=== PATIENT | male | born 1985 | race Caucasian/White ===

== ENCOUNTER 2017-07-17 22:38 | Inpatient (IN) ==
--- NOTE | 2017-07-17 22:51 | Emergency Department Note ---
Disposition Clinical Impression: Suicidal ideation, Acute kidney injury Overdose Qualifiers: Encounter type: initial encounter Injury intent: intentional self-harm Qualified Code(s): T50.902A - Poisoning by unspecified drugs, medicaments and biological substances, intentional self-harm, initial encounter Disposition: Still a Patient Condition: Fair Referrals: NONE,PCP [Primary Care Provider] - Psych HPI - General Stated Complaint: overdose Time Seen by Provider: 07/17/17 22:46 Source: patient, EMS Mode of arrival: EMS Limitations: no limitations Nursing Notes Reviewed: Yes Vital Signs Reviewed: Yes - History of Present Illness HPI Narrative: 31-year-old male with a history of SI, depression, substance abuse presents for evaluation after an intentional overdose. Patient states that he took heroin. Patient states that he wanted to kill himself. Patient has have history of SI in the past. Patient states he has been under significant depression. Patient was found unresponsive and was given 4 mg of Narcan. Patient was completely reversed. She also notes a take heroin. Patient denies any delusions or hallucinations. Patient denies any other complaints. - Related Data Previous Rx's Medication Instructions Recorded Clindamycin [Cleocin] 300 mg PO Q6HR #56 capsule 09/05/15 OxyCODONE/APAP 7.5/325 [Percocet 1 each PO Q6HR PRN #30 tablet 09/05/15 7.5/325 MG] Clindamycin HCl 300 mg PO TID #30 capsule 07/25/16 Ondansetron HCl [Zofran] 4 mg PO Q6H #20 tablet 07/25/16 Allergies Allergy/AdvReac Type Severity Reaction Status Date / Time No Known Allergies Allergy Verified 09/03/15 08:15 All systems ED: reviewed and negative except as stated. Constitutional: Denies: fever Cardiovascular: Denies: chest pain Respiratory: Denies: cough, dyspnea Gastrointestinal: Denies: abdominal pain, nausea, vomiting Past Medical History - Past Medical History Source: patient Medical history: Reports: no medical history Surgical history: Reports: other Psychiatric history: Reports: anxiety, depression - Social History Smoking Status: Current every day smoker Smokeless Tobacco Status: No Alcohol use: Reports: occasionally Drug use: Reports: marijuana Physical Exam - General Limitations: no limitations General appearance: alert, in no apparent distress - Head Head exam: atraumatic, normocephalic, normal inspection - Eye Eye exam: Present: normal appearance, PERRL, EOMI. Absent: miosis - ENT ENT exam: normal exam - Neck Neck exam: Present: normal inspection - Chest Chest inspection: Present: normal inspection. Absent: symmetric chest wall rise - Respiratory Respiratory exam: Present: normal lung sounds bilaterally. Absent: respiratory distress - Cardiovascular Cardiovascular exam: Present: regular rate, normal rhythm - Abdominal Exam Abdominal exam: Present: soft, Non-Tender - Extremities Exam Extremities exam: Present: normal inspection - Back Exam Back exam: Present: normal inspection - Neurological Exam Neurological exam: Present: alert, CN II-XII intact - Skin Skin exam: Present: warm, dry, intact, normal color Course Course Narrative: Patient seen and examined. Patient does admit to being suicidal. Patient will get medically cleared and evaluated by psychiatry. Vital Signs Temperature 97.5 F L 07/17/17 23:05 Pulse Rate 86 07/17/17 23:05 Respiratory Rate 18 07/17/17 23:05 Blood Pressure 128/73 07/17/17 23:05 O2 Sat by Pulse Oximetry 98 07/17/17 23:05 Temperature 97.5 F L 07/17/17 23:05 Pulse Rate 86 07/17/17 23:05 Respiratory Rate 18 07/17/17 23:05 Blood Pressure 128/73 07/17/17 23:05 O2 Sat by Pulse Oximetry 98 07/17/17 23:05 Oxygen Delivery Oxygen Delivery Room Air Psych - MDM Narrative Medical decision making narrative: Patient presents after an intentional overdose. Patient does have a history of substance abuse. Patient was given Narcan for reversal. Patient states that he did attend to kill himself. During the course the patient's ED evaluation is noted the patient did have a slight elevation his kidney function. This is likely prerenal given the patient's volume status. Patient is able tolerate oral intake and continues to produce urine. Patient has no history of chronic kidney disease and will likely recover urinary function appropriately with appropriate by mouth hydration. Patient was medically cleared and at this time is awaiting psychiatry's evaluation for dyspnea position planning. Patient was pink slipped given his initial complaint of suicidal ideation with attempt. - Lab Data Result diagrams: 07/17/17 22:57 07/17/17 22:57 Lab Results 06/08/18 06/08/18 06/08/18 Range/Units 22:57 22:57 23:35 WBC 12.0 H (4.3-11.1) K/mcL RBC 5.48 (4.19-5.50) M/mcL Hgb 15.3 (12.9-16.9) g/dL Hct 47.0 (37.5-50.1) % MCV 85.8 (83.0-100.0) fL MCH 27.9 L (28.0-33.3) pg MCHC 32.6 (31.6-35.5) g/dL RDW 13.3 (11.5-14.5) % Plt Count 211 (140-400) K/mcL MPV 10.0 (9.4-12.4) fL Immature Gran % 0.6 (0-4) % Seg Neutrophils % 76.0 % Lymphocytes % 16.1 % Monocytes % 4.9 % Eosinophils % 1.6 % Basophils % 0.8 % Neutrophils # 9.1 H (1.6-8.9) K/mcL Lymphocytes # 1.9 (0.6-4.6) K/mcL Monocytes # 0.6 (0.0-1.3) K/mcL Eosinophils # 0.2 (0.0-0.6) K/mcL Basophils # 0.1 (0.0-0.2) K/mcL Sodium 137 (136-145) mEq/L Potassium 3.8 (3.5-5.1) mEq/L Chloride 105 (98-107) mEq/L Carbon Dioxide 25 (23-29) mEq/L BUN 22 H (6-20) mg/dL Creatinine 1.67 H (0.70-1.30) mg/dL Est GFR ( Amer) 59 L (> 60) Est GFR (Non-Af Amer) 49 L (> 60) BUN/Creatinine Ratio 13 (6-26) Glucose 119 H (70-105) mg/dL Calculated Osmolality 288 (280-300) Calcium 9.1 (8.6-10.3) mg/dL Urine Color Yellow (Yellow) Urine Clarity Clear (Clear) Urine pH 5.5 (5.0-8.0) pH Units Ur Specific [place] >= 1.030 H (1.010-1.025) Urine Protein 30 H (Neg-Trace) mg/dL Urine Glucose (UA) 100 H (Normal) mg/dL Urine Ketones Negative (Negative) mg/dL Urine Blood Negative (Negative) Urine Nitrite Negative (Negative) Urine Bilirubin Negative (Negative) Urine Urobilinogen Normal (Normal) mg/dL Ur Leukocyte Esterase Negative (Negative) Urine Microscopic WBC 0-3 (0-3) per hpf Salicylates < 2.5 L (15.0-30.0) mg/dL Urine Opiates Screen (Vrrcuo=375) ng/mL Acetaminophen < 10 L (10-20) mcg/mL Ur Barbiturates Screen (Yiwstd=267) ng/mL Ur Phencyclidine Scrn (Cutoff=25) ng/mL Ur Amphetamines Screen (Wpzjrx=7190) ng/mL U Benzodiazepines Scrn (Gvqvxp=308) ng/mL Urine Cocaine Screen (Cutoff= 300) ng/mL U Marijuana (THC) Screen (Cutoff = 50) ng/mL Ethyl Alcohol < 10 (Less than 10) mg/dL 07/17/17 Range/Units 23:35 WBC (4.3-11.1) K/mcL RBC (4.19-5.50) M/mcL Hgb (12.9-16.9) g/dL Hct (37.5-50.1) % MCV (83.0-100.0) fL MCH (28.0-33.3) pg MCHC (31.6-35.5) g/dL RDW (11.5-14.5) % Plt Count (140-400) K/mcL MPV (9.4-12.4) fL Immature Gran % (0-4) % Seg Neutrophils % % Lymphocytes % % Monocytes % % Eosinophils % % Basophils % % Neutrophils # (1.6-8.9) K/mcL Lymphocytes # (0.6-4.6) K/mcL Monocytes # (0.0-1.3) K/mcL Eosinophils # (0.0-0.6) K/mcL Basophils # (0.0-0.2) K/mcL Sodium (136-145) mEq/L Potassium (3.5-5.1) mEq/L Chloride (98-107) mEq/L Carbon Dioxide (23-29) mEq/L BUN (6-20) mg/dL Creatinine (0.70-1.30) mg/dL Est GFR ( Amer) (> 60) Est GFR (Non-Af Amer) (> 60) BUN/Creatinine Ratio (6-26) Glucose (70-105) mg/dL Calculated Osmolality (280-300) Calcium (8.6-10.3) mg/dL Urine Color (Yellow) Urine Clarity (Clear) Urine pH (5.0-8.0) pH Units Ur Specific [place] (1.010-1.025) Urine Protein (Neg-Trace) mg/dL Urine Glucose (UA) (Normal) mg/dL Urine Ketones (Negative) mg/dL Urine Blood (Negative) Urine Nitrite (Negative) Urine Bilirubin (Negative) Urine Urobilinogen (Normal) mg/dL Ur Leukocyte Esterase (Negative) Urine Microscopic WBC (0-3) per hpf Salicylates (15.0-30.0) mg/dL Urine Opiates Screen Positive H (Fznquo=836) ng/mL Acetaminophen (10-20) mcg/mL Ur Barbiturates Screen Negative (Yhblrn=156) ng/mL Ur Phencyclidine Scrn Negative (Cutoff=25) ng/mL Ur Amphetamines Screen Negative (Ccgvuy=7601) ng/mL U Benzodiazepines Scrn Negative (Mvejtw=965) ng/mL Urine Cocaine Screen Positive H (Cutoff= 300) ng/mL U Marijuana (THC) Screen Positive H (Cutoff = 50) ng/mL Ethyl Alcohol (Less than 10) mg/dL - EKG Data EKG attestation: Yes I reviewed and interpreted this EKG. EKG shows normal: sinus rhythm Rate: normal Rhythm: NSR [place]/QRS: normal When compared to previous EKG there are: no significant changes (Benign early re -pole in the precordial leads.) Psychiatric Medical Clearance - Medical Clearance Checklist Does the patient have a NEW psychiatric condition?: No Any abnormalities indicating possible medical illness?: No Any history of medical issues?: No Medical History: No Social History Section defined Any abnormal vital signs prior to transfer?: No Current Vitals: Last Vital Signs Temp 97.5 F L 07/17/17 23:05 Pulse 86 07/17/17 23:05 Resp 18 07/17/17 23:05 BP 128/73 07/17/17 23:05 Pulse Ox 98 07/17/17 23:05 Is the patient intoxicated or cognitively impaired?: No Psychiatric Lab Panel: Drug Levels and Toxicity 07/17/17 07/17/17 22:57 23:35 Urine Opiates Screen Positive H Acetaminophen < 10 L Ur Barbiturates Screen Negative Ur Phencyclidine Scrn Negative Ur Amphetamines Screen Negative U Benzodiazepines Scrn Negative Urine Cocaine Screen Positive H U Marijuana (THC) Screen Positive H Ethyl Alcohol < 10 Any abnormalities on the physical exam?: No Any abnormal labs?: Yes Abnormal Labs: Abnormal lab results WBC 12.0 K/mcL (4.3-11.1) H 07/17/17 22:57 MCH 27.9 pg (28.0-33.3) L 07/17/17 22:57 Neutrophils # 9.1 K/mcL (1.6-8.9) H 07/17/17 22:57 BUN 22 mg/dL (6-20) H 07/17/17 22:57 Creatinine 1.67 mg/dL (0.70-1.30) H 07/17/17 22:57 Est GFR ( Amer) 59 (> 60) L 07/17/17 22:57 Est GFR (Non-Af Amer) 49 (> 60) L 07/17/17 22:57 Glucose 119 mg/dL (70-105) H 07/17/17 22:57 Ur Specific [place] >= 1.030 (1.010-1.025) H 07/17/17 23:35 Urine Protein 30 mg/dL (Neg-Trace) H 07/17/17 23:35 Urine Glucose (UA) 100 mg/dL (Normal) H 07/17/17 23:35 Salicylates < 2.5 mg/dL (15.0-30.0) L 07/17/17 22:57 Urine Opiates Screen Positive ng/mL (Yxybdv=436) H 07/17/17 23:35 Acetaminophen < 10 mcg/mL (10-20) L 07/17/17 22:57 Urine Cocaine Screen Positive ng/mL (Cutoff= 300) H 07/17/17 23:35 U Marijuana (THC) Screen Positive ng/mL (Cutoff = 50) H 07/17/17 23:35 Does the patient require durable medical equiptment?: No Is the patient ambulatory?: No Is the patient a fall risk?: No Has the patient been medically cleared?: Yes Any acute medical condition require Tx prior to transfer?: No Statement of Medical Clearance: I have evaluated the patient, reviewed diagnostic information, and certify that the patient's medical condition is sufficiently stable that transfer to the psychiatric unit does not pose a significant risk of deterioration. [email or web address] - [place] Situation: Demographics Background: Presenting Complaint Assessment: Vital Signs, Course and respsone to treatment, Patient/Family Expectation Recommendation: Barrier(s) to disposition, Recommendation based on pending studies, treatments, or consults S.[email or web address] Report Given to: Dr. Olivier
[2017-07-17 23:18] LABS: Basophils # 0.1 K/mcL (0.0-0.2); Basophils % 0.8 %; Eosinophils # 0.2 K/mcL (0.0-0.6); Eosinophils % 1.6 %; Hemoglobin 15.3 g/dL (12.9-16.9); Immature Granulocytes % 0.6 % (0-4); Lymphocytes # 1.9 K/mcL (0.6-4.6); Lymphocytes % 16.1 %; Mean Corpuscular HGB Conc 32.6 g/dL (31.6-35.5); Mean Corpuscular Hemoglobin 27.9 pg (28.0-33.3); Mean Corpuscular Volume 85.8 fL (83.0-100.0); Monocytes # 0.6 K/mcL (0.0-1.3); Monocytes % 4.9 %; Neutrophils # 9.1 K/mcL (1.6-8.9); Platelet Count 211 K/mcL (140-400); Red Blood Count 5.48 M/mcL (4.19-5.50); Red Cell Distribution Width 13.3 % (11.5-14.5)
[2017-07-17 23:33] LABS: Acetaminophen < 10 mcg/mL (10-20); BUN/Creatinine Ratio 13 (6-26); Blood Urea Nitrogen 22 mg/dL (6-20); Calcium 9.1 mg/dL (8.6-10.3); Carbon Dioxide 25 mEq/L (23-29); Chloride 105 mEq/L (98-107); Ethanol < 10 mg/dL (Less than 10); Glucose 119 mg/dL (70-105); Osmolality,Calculated 288 (280-300); Potassium 3.8 mEq/L (3.5-5.1); Salicylate < 2.5 mg/dL (15.0-30.0); Sodium 137 mEq/L (136-145); eGFR For African Americans 59 (> 60); eGFR For Non-African Americans 49 (> 60)
[2017-07-17 23:42] LABS: Bilirubin,Urine Negative (Negative); Blood,Urine Negative (Negative); Clarity,Urine Clear (Clear); Color,Urine Yellow (Yellow); Glucose,Urine (UA) 100 mg/dL (Normal); Ketones,Urine Negative (Negative); Leukocyte Esterase,Urine Negative (Negative); Nitrite,Urine Negative (Negative); PH,Urine 5.5 pH Units (5.0-8.0); Protein,Urine 30 mg/dL (Neg-Trace); Specific Gravity,Urine >= 1.030 (1.010-1.025); Urobilinogen,Urine Normal (Normal)
[2017-07-17 23:50] LABS: Amphetamine Screen,Urine Negative ng/mL (Cutoff=1000); Barbiturate Screen,Urine Negative ng/mL (Cutoff=200); Benzodiazepines Screen,Urine Negative ng/mL (Cutoff=200); Cannabinoid Screen,Urine Positive ng/mL (Cutoff = 50); Cocaine Screen,Urine Positive ng/mL (Cutoff= 300); Opiate Screen,Urine Positive ng/mL (Cutoff=300); Phencyclidine Screen,Urine Negative ng/mL (Cutoff=25); WBC,Urine 0-3 per hpf (0-3)
--- NOTE | 2017-07-18 00:39 | Emergency Department Note ---
Disposition Clinical Impression: Suicidal ideation, Acute kidney injury Overdose Qualifiers: Encounter type: initial encounter Injury intent: intentional self-harm Qualified Code(s): T50.902A - Poisoning by unspecified drugs, medicaments and biological substances, intentional self-harm, initial encounter Disposition: Still a Patient Condition: Fair Referrals: NONE,PCP [Primary Care Provider] - General Adult HPI - General Chief complaint: ED Overdose Stated complaint: overdose Time Seen by Provider: 07/17/17 22:46 Source: patient, EMS Mode of arrival: EMS Limitations: no limitations Nursing Notes Reviewed: Yes Vital Signs Reviewed: Yes - History of Present Illness Pain Scale: 6 - Related Data Previous Rx's Medication Instructions Recorded Clindamycin [Cleocin] 300 mg PO Q6HR #56 capsule 09/05/15 OxyCODONE/APAP 7.5/325 [Percocet 1 each PO Q6HR PRN #30 tablet 09/05/15 7.5/325 MG] Clindamycin HCl 300 mg PO TID #30 capsule 07/25/16 Ondansetron HCl [Zofran] 4 mg PO Q6H #20 tablet 07/25/16 Allergies Allergy/AdvReac Type Severity Reaction Status Date / Time No Known Allergies Allergy Verified 09/03/15 08:15 Constitutional: Denies: fever Cardiovascular: Denies: chest pain Respiratory: Denies: cough, dyspnea Gastrointestinal: Denies: abdominal pain, nausea, vomiting Past Medical History - Past Medical History Medical history: Reports: no medical history Surgical history: Reports: other Psychiatric history: Reports: anxiety, depression - Social History Smoking Status: Current every day smoker Smokeless Tobacco Status: No Alcohol use: Reports: occasionally Drug use: Reports: marijuana Physical Exam - General Limitations: no limitations General appearance: alert, in no apparent distress Course Vital Signs Temperature 97.5 F L 07/17/17 23:05 Pulse Rate 86 07/17/17 23:05 Respiratory Rate 18 07/17/17 23:05 Blood Pressure 128/73 07/17/17 23:05 O2 Sat by Pulse Oximetry 98 07/17/17 23:05 Temperature 97.5 F L 07/17/17 23:05 Pulse Rate 86 07/17/17 23:05 Respiratory Rate 18 07/17/17 23:05 Blood Pressure 128/73 07/17/17 23:05 O2 Sat by Pulse Oximetry 98 07/17/17 23:05 Oxygen Delivery Oxygen Delivery Room Air Medical Decision Making - Lab Data Result diagrams: 07/17/17 22:57 07/17/17 22:57 Lab Results 07/17/17 07/17/17 07/17/17 Range/Units 22:57 22:57 23:35 WBC 12.0 H (4.3-11.1) K/mcL RBC 5.48 (4.19-5.50) M/mcL Hgb 15.3 (12.9-16.9) g/dL Hct 47.0 (37.5-50.1) % MCV 85.8 (83.0-100.0) fL MCH 27.9 L (28.0-33.3) pg MCHC 32.6 (31.6-35.5) g/dL RDW 13.3 (11.5-14.5) % Plt Count 211 (140-400) K/mcL MPV 10.0 (9.4-12.4) fL Immature Gran % 0.6 (0-4) % Seg Neutrophils % 76.0 % Lymphocytes % 16.1 % Monocytes % 4.9 % Eosinophils % 1.6 % Basophils % 0.8 % Neutrophils # 9.1 H (1.6-8.9) K/mcL Lymphocytes # 1.9 (0.6-4.6) K/mcL Monocytes # 0.6 (0.0-1.3) K/mcL Eosinophils # 0.2 (0.0-0.6) K/mcL Basophils # 0.1 (0.0-0.2) K/mcL Sodium 137 (136-145) mEq/L Potassium 3.8 (3.5-5.1) mEq/L Chloride 105 (98-107) mEq/L Carbon Dioxide 25 (23-29) mEq/L BUN 22 H (6-20) mg/dL Creatinine 1.67 H (0.70-1.30) mg/dL Est GFR ( Amer) 59 L (> 60) Est GFR (Non-Af Amer) 49 L (> 60) BUN/Creatinine Ratio 13 (6-26) Glucose 119 H (70-105) mg/dL Calculated Osmolality 288 (280-300) Calcium 9.1 (8.6-10.3) mg/dL Urine Color Yellow (Yellow) Urine Clarity Clear (Clear) Urine pH 5.5 (5.0-8.0) pH Units Ur Specific [place] >= 1.030 H (1.010-1.025) Urine Protein 30 H (Neg-Trace) mg/dL Urine Glucose (UA) 100 H (Normal) mg/dL Urine Ketones Negative (Negative) mg/dL Urine Blood Negative (Negative) Urine Nitrite Negative (Negative) Urine Bilirubin Negative (Negative) Urine Urobilinogen Normal (Normal) mg/dL Ur Leukocyte Esterase Negative (Negative) Urine Microscopic WBC 0-3 (0-3) per hpf Salicylates < 2.5 L (15.0-30.0) mg/dL Urine Opiates Screen (Eeozhp=434) ng/mL Acetaminophen < 10 L (10-20) mcg/mL Ur Barbiturates Screen (Kkwkqf=652) ng/mL Ur Phencyclidine Scrn (Cutoff=25) ng/mL Ur Amphetamines Screen (Bilcjq=6094) ng/mL U Benzodiazepines Scrn (Lsovkr=271) ng/mL Urine Cocaine Screen (Cutoff= 300) ng/mL U Marijuana (THC) Screen (Cutoff = 50) ng/mL Ethyl Alcohol < 10 (Less than 10) mg/dL 07/17/17 Range/Units 23:35 WBC (4.3-11.1) K/mcL RBC (4.19-5.50) M/mcL Hgb (12.9-16.9) g/dL Hct (37.5-50.1) % MCV (83.0-100.0) fL MCH (28.0-33.3) pg MCHC (31.6-35.5) g/dL RDW (11.5-14.5) % Plt Count (140-400) K/mcL MPV (9.4-12.4) fL Immature Gran % (0-4) % Seg Neutrophils % % Lymphocytes % % Monocytes % % Eosinophils % % Basophils % % Neutrophils # (1.6-8.9) K/mcL Lymphocytes # (0.6-4.6) K/mcL Monocytes # (0.0-1.3) K/mcL Eosinophils # (0.0-0.6) K/mcL Basophils # (0.0-0.2) K/mcL Sodium (136-145) mEq/L Potassium (3.5-5.1) mEq/L Chloride (98-107) mEq/L Carbon Dioxide (23-29) mEq/L BUN (6-20) mg/dL Creatinine (0.70-1.30) mg/dL Est GFR ( Amer) (> 60) Est GFR (Non-Af Amer) (> 60) BUN/Creatinine Ratio (6-26) Glucose (70-105) mg/dL Calculated Osmolality (280-300) Calcium (8.6-10.3) mg/dL Urine Color (Yellow) Urine Clarity (Clear) Urine pH (5.0-8.0) pH Units Ur Specific [place] (1.010-1.025) Urine Protein (Neg-Trace) mg/dL Urine Glucose (UA) (Normal) mg/dL Urine Ketones (Negative) mg/dL Urine Blood (Negative) Urine Nitrite (Negative) Urine Bilirubin (Negative) Urine Urobilinogen (Normal) mg/dL Ur Leukocyte Esterase (Negative) Urine Microscopic WBC (0-3) per hpf Salicylates (15.0-30.0) mg/dL Urine Opiates Screen Positive H (Vulsex=541) ng/mL Acetaminophen (10-20) mcg/mL Ur Barbiturates Screen Negative (Vmbhrx=628) ng/mL Ur Phencyclidine Scrn Negative (Cutoff=25) ng/mL Ur Amphetamines Screen Negative (Dpldre=4575) ng/mL U Benzodiazepines Scrn Negative (Srzojq=564) ng/mL Urine Cocaine Screen Positive H (Cutoff= 300) ng/mL U Marijuana (THC) Screen Positive H (Cutoff = 50) ng/mL Ethyl Alcohol (Less than 10) mg/dL Attestation Statement - Attestation Attestation: I, Kevin Ennis MD, personally evaluated this patient and discussed their management with the resident physician. I reviewed the resident's note and agree with the documented findings, medical decision making, and plan of care. 31-year-old male presents to the emergency department by ambulance after an intentional overdose with heroin as a suicide attempt. Patient reports he just wanted to . He reports history of suicidal thoughts and attempts in the past. On examination patient is a well-developed well-nourished male in no acute distress. He is alert and oriented 3. There is no cyanosis or diaphoresis. Breath sounds are clear and equal bilaterally. Heart regular rate and rhythm. Abdomen soft and nontender with normal bowel sounds. No gross focal neurological deficits. Labs reviewed and unremarkable. Urine tox screen positive for opiates, cocaine , and marijuana. EKG shows a normal sinus rhythm with ventricular rate of 86. ST elevation consistent with early repolarization. Patient medically cleared for psychiatric evaluation. [address] psychiatry department was consulted to evaluate patient in the emergency department. At shift change patient is signed out to the oncoming dayshift physician, Dr. Yahir Isaac.
--- NOTE | 2017-07-18 07:26 | Emergency Department Note ---
Overdose - MDM Narrative Medical decision making narrative: Patient received in signout pending behavioral health evaluation and disposition. Behavioral health evaluated the patient in the emergency department and agreed to accept the patient to 1A for suicidal ideation status post opiate overdose - Lab Data Result diagrams: 07/17/17 22:57 07/17/17 22:57 Lab Results 07/17/17 07/17/17 07/17/17 Range/Units 22:57 22:57 23:35 WBC 12.0 H (4.3-11.1) K/mcL RBC 5.48 (4.19-5.50) M/mcL Hgb 15.3 (12.9-16.9) g/dL Hct 47.0 (37.5-50.1) % MCV 85.8 (83.0-100.0) fL MCH 27.9 L (28.0-33.3) pg MCHC 32.6 (31.6-35.5) g/dL RDW 13.3 (11.5-14.5) % Plt Count 211 (140-400) K/mcL MPV 10.0 (9.4-12.4) fL Immature Gran % 0.6 (0-4) % Seg Neutrophils % 76.0 % Lymphocytes % 16.1 % Monocytes % 4.9 % Eosinophils % 1.6 % Basophils % 0.8 % Neutrophils # 9.1 H (1.6-8.9) K/mcL Lymphocytes # 1.9 (0.6-4.6) K/mcL Monocytes # 0.6 (0.0-1.3) K/mcL Eosinophils # 0.2 (0.0-0.6) K/mcL Basophils # 0.1 (0.0-0.2) K/mcL Sodium 137 (136-145) mEq/L Potassium 3.8 (3.5-5.1) mEq/L Chloride 105 (98-107) mEq/L Carbon Dioxide 25 (23-29) mEq/L BUN 22 H (6-20) mg/dL Creatinine 1.67 H (0.70-1.30) mg/dL Est GFR ( Amer) 59 L (> 60) Est GFR (Non-Af Amer) 49 L (> 60) BUN/Creatinine Ratio 13 (6-26) Glucose 119 H (70-105) mg/dL Calculated Osmolality 288 (280-300) Calcium 9.1 (8.6-10.3) mg/dL Urine Color Yellow (Yellow) Urine Clarity Clear (Clear) Urine pH 5.5 (5.0-8.0) pH Units Ur Specific [place] >= 1.030 H (1.010-1.025) Urine Protein 30 H (Neg-Trace) mg/dL Urine Glucose (UA) 100 H (Normal) mg/dL Urine Ketones Negative (Negative) mg/dL Urine Blood Negative (Negative) Urine Nitrite Negative (Negative) Urine Bilirubin Negative (Negative) Urine Urobilinogen Normal (Normal) mg/dL Ur Leukocyte Esterase Negative (Negative) Urine Microscopic WBC 0-3 (0-3) per hpf Salicylates < 2.5 L (15.0-30.0) mg/dL Urine Opiates Screen (Eprjqc=257) ng/mL Acetaminophen < 10 L (10-20) mcg/mL Ur Barbiturates Screen (Kszbna=761) ng/mL Ur Phencyclidine Scrn (Cutoff=25) ng/mL Ur Amphetamines Screen (Ibiqyw=4185) ng/mL U Benzodiazepines Scrn (Aqidmj=529) ng/mL Urine Cocaine Screen (Cutoff= 300) ng/mL U Marijuana (THC) Screen (Cutoff = 50) ng/mL Ethyl Alcohol < 10 (Less than 10) mg/dL 07/17/17 Range/Units 23:35 WBC (4.3-11.1) K/mcL RBC (4.19-5.50) M/mcL Hgb (12.9-16.9) g/dL Hct (37.5-50.1) % MCV (83.0-100.0) fL MCH (28.0-33.3) pg MCHC (31.6-35.5) g/dL RDW (11.5-14.5) % Plt Count (140-400) K/mcL MPV (9.4-12.4) fL Immature Gran % (0-4) % Seg Neutrophils % % Lymphocytes % % Monocytes % % Eosinophils % % Basophils % % Neutrophils # (1.6-8.9) K/mcL Lymphocytes # (0.6-4.6) K/mcL Monocytes # (0.0-1.3) K/mcL Eosinophils # (0.0-0.6) K/mcL Basophils # (0.0-0.2) K/mcL Sodium (136-145) mEq/L Potassium (3.5-5.1) mEq/L Chloride (98-107) mEq/L Carbon Dioxide (23-29) mEq/L BUN (6-20) mg/dL Creatinine (0.70-1.30) mg/dL Est GFR ( Amer) (> 60) Est GFR (Non-Af Amer) (> 60) BUN/Creatinine Ratio (6-26) Glucose (70-105) mg/dL Calculated Osmolality (280-300) Calcium (8.6-10.3) mg/dL Urine Color (Yellow) Urine Clarity (Clear) Urine pH (5.0-8.0) pH Units Ur Specific [place] (1.010-1.025) Urine Protein (Neg-Trace) mg/dL Urine Glucose (UA) (Normal) mg/dL Urine Ketones (Negative) mg/dL Urine Blood (Negative) Urine Nitrite (Negative) Urine Bilirubin (Negative) Urine Urobilinogen (Normal) mg/dL Ur Leukocyte Esterase (Negative) Urine Microscopic WBC (0-3) per hpf Salicylates (15.0-30.0) mg/dL Urine Opiates Screen Positive H (Rbxtgf=648) ng/mL Acetaminophen (10-20) mcg/mL Ur Barbiturates Screen Negative (Nlgavc=559) ng/mL Ur Phencyclidine Scrn Negative (Cutoff=25) ng/mL Ur Amphetamines Screen Negative (Oidtdo=2700) ng/mL U Benzodiazepines Scrn Negative (Hkgujr=661) ng/mL Urine Cocaine Screen Positive H (Cutoff= 300) ng/mL U Marijuana (THC) Screen Positive H (Cutoff = 50) ng/mL Ethyl Alcohol (Less than 10) mg/dL Overdose HPI - General Chief Complaint: ED Overdose Stated Complaint: overdose Time Seen by Provider: 07/17/17 22:46 Source: patient, EMS Mode of arrival: EMS Limitations: no limitations Nursing Notes Reviewed: Yes Vital Signs Reviewed: Yes - Related Data Previous Rx's Medication Instructions Recorded Clindamycin [Cleocin] 300 mg PO Q6HR #56 capsule 09/05/15 OxyCODONE/APAP 7.5/325 [Percocet 1 each PO Q6HR PRN #30 tablet 09/05/15 7.5/325 MG] Clindamycin HCl 300 mg PO TID #30 capsule 07/25/16 Ondansetron HCl [Zofran] 4 mg PO Q6H #20 tablet 07/25/16 Allergies Allergy/AdvReac Type Severity Reaction Status Date / Time No Known Allergies Allergy Verified 09/03/15 08:15 Constitutional: Denies: fever Cardiovascular: Denies: chest pain Respiratory: Denies: cough, dyspnea Gastrointestinal: Denies: abdominal pain, nausea, vomiting Past Medical History - Past Medical History Medical history: Reports: no medical history Surgical history: Reports: other Psychiatric history: Reports: anxiety, depression - Social History Smoking Status: Current every day smoker Smokeless Tobacco Status: No Alcohol use: Reports: occasionally Drug use: Reports: marijuana Physical Exam - General Limitations: no limitations General appearance: alert, in no apparent distress Course Vital Signs Temperature 97.5 F L 07/17/17 23:05 Pulse Rate 86 07/17/17 23:05 Respiratory Rate 18 07/17/17 23:05 Blood Pressure 128/73 07/17/17 23:05 O2 Sat by Pulse Oximetry 98 07/17/17 23:05 Temperature 97.5 F L 07/17/17 23:05 Pulse Rate 86 07/17/17 23:05 Respiratory Rate 18 07/17/17 23:05 Blood Pressure 128/73 07/17/17 23:05 O2 Sat by Pulse Oximetry 98 07/17/17 23:05 Oxygen Delivery Oxygen Delivery Room Air Disposition Clinical Impression: Suicidal ideation, Acute kidney injury Overdose Qualifiers: Encounter type: initial encounter Injury intent: intentional self-harm Qualified Code(s): T50.902A - Poisoning by unspecified drugs, medicaments and biological substances, intentional self-harm, initial encounter Disposition: Admitted As Inpatient Condition: Fair Referrals: NONE,PCP [Primary Care Provider] - Time of Disposition: 07:20
[2017-07-18] MEDS ORDERED: *HR* LORazepam 1 MG TABLET PO PRN (14:41)
[2017-07-18] MEDS ORDERED: hydrOXYzine pamoate 25 MG CAPSULE PO PRN (14:41)
[2017-07-18] MEDS ORDERED: Mag Hydrox/Al Hydrox/Simeth 30 ML UDC PO PRN (14:41)
[2017-07-18] MEDS ORDERED: *HR* LORazepam 2 MG/ML VIAL IM PRN (14:41)
[2017-07-18] MEDS ORDERED: Haloperidol Lactate 5 MG/ML VIAL IM PRN (14:41)
[2017-07-18] MEDS ORDERED: traZODone 50 MG TABLET PO PRN (14:41)
[2017-07-18] MEDS ORDERED: Acetaminophen 325 MG TABLET PO PRN (14:41)
[2017-07-18] MEDS ORDERED: MOM Conc 10 ML UD.LIQ PO PRN (14:41)
[2017-07-18] MEDS ORDERED: Ondansetron ODT 4 MG TAB.RAPDIS SL PRN (17:23)
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
[2017-07-18] MEDS: Baclofen 10 MG TABLET PO SCH (20:21)
[2017-07-18] MEDS: cloNIDine HCl 0.1 MG TABLET PO SCH (20:21)
[2017-07-18] MEDS: Gabapentin 100 MG CAPSULE PO SCH (20:22)
[2017-07-19] MEDS: Gabapentin 100 MG CAPSULE PO SCH (09:16)
[2017-07-19] MEDS: Nicotine 7 MG PATCH.TD24 TD SCH ×2 (09:16→09:47)
[2017-07-19] MEDS: Baclofen 10 MG TABLET PO SCH (09:16)
[2017-07-19] MEDS: cloNIDine HCl 0.1 MG TABLET PO SCH (09:16)
[2017-07-19 09:48] VITALS: BP 125/79
[2017-07-19] MEDS ORDERED: Baclofen 10 MG TABLET PO SCH (12:30)
--- NOTE | 2017-07-19 12:45 | Discharge Summary ---
Date of Encounter: 07/19/17 Time of Encounter: 12:45 Diagnosis - Discharge Diagnosis (1) Mixed obsessional thoughts and acts Status: Chronic (2) Adjustment disorder with depressed mood Status: Acute (3) Uncomplicated opioid abuse Status: Chronic (4) Suicidal ideation Status: Resolved Medications - Discharge Medications No Known Home Drugs 07/18/17 [History] 3 Allergy/AdvReac Type Severity Reaction Status Date / Time No Known Allergies Allergy Verified 07/18/17 10:58 Provider Date of admission: 07/18/17 07:23 Primary care physician: PCP NONE Discharging clinician: Fabio Jiménez Psychiatry Exam - Constitutional Vitals: Temp Pulse Resp BP Pulse Ox 98.3 F 77 16 125/79 98 07/19/17 09:00 07/19/17 09:00 07/19/17 09:00 07/19/17 09:00 07/17/17 23:05 General appearance: age & developmentally appropriate, well-groomed, well- nourished - Musculoskeletal Gait: normal Station: relaxed Strength & Tone: normal for patient - Psychiatric Patient Orientation: Yes Person, Yes Time, Yes Place Level of alertness: Alert Behavior: calm, cooperative Psychomotor activity: Normal Eye Contact: Maintains Eye Contact Mood Description: Euthymic/stable Affect description: congruent with mood, full range Speech Volume: Normal Speech pattern: normal rate, normal rhythm, normal tone, fluent, spontaneous Language & Vocabulary: consistent with education Thought Process: Linear, Goal Oriented Thought Content: No Suicidal ideation, No Homicidal ideation, No Overt delusions Perceptual Disturbances: No Auditory hallucinations, No Visual hallucinations Attention Span Ability: Capable of Focused Attention Memory Description: Grossly Intact Patient Reliability: Reliable Historian Fund of knowledge: Yes abstraction ability, Yes aware of current events Intelligence Estimate: Average Judgment: Fair Insight: Partial Hospital Course Hospital course: Mr. Rangel is a 31 year old male The patient was admitted to one . He was admitted from the ER. The patient reported depressive symptoms that occurred within the past 6 months and was given a diagnosis of adjustment disorder with depressed mood. In the past he been treated with sertraline and so he was able to start sertraline 50 mg every morning prior to discharge. The patient also had trazodone 50 mg daily at bedtime he tolerated this without significant difficulties. The patient had experienced opiate withdrawal was still having some opiate withdrawal symptoms at the time of discharge. He requested to continue on the comfort medicines. He did not have nausea but he had sensory and motor symptoms. Patient was concerned that he had a job and had to be at work at 8: 00 in the morning on Thursday. He asked to be discharged. The patient was educated on local addiction treatment clinics as well as local mental health centers. He was educated on Suboxone and the nature of this treatment. He was also educated on vivitrol on methadone his other medication assisted treatments. The patient reported improvement in mood and improvement in sleep. He recognized the addictive nature of Percocets and heroin and found to get off these with the help of the discharge medications. The patient noted no suicidal ideation at the time discharge occasions at the time of discharge included clonidine trazodone sertraline baclofen and push written prescriptions were given to the patient and prior to this scanned into the chart. Patient was educated on the effects and the nature of addiction. He verbalized understanding Time spent discussing smoking cessation with patient: 3 to 10 minutes - Time Spent with Patient Total time spent providing and/or coordinating discharge services: Less than 30 minutes Assessment and Plan - Patient/Caregiver Discharge Instructions Activity: resume usual activities as tolerated Diet: regular diet - Follow up Plan Follow up with: NONE,PCP [Primary Care Provider] - Functional capacity at discharge: independent ambulation Overall status at discharge: Stable Disposition: Home, Self-Care Quality - Multiple Antipsychotics Patient discharged on 2 or more antipsychotic medications: No Procedures - Procedures Procedures: Medication Management, Crisis Stabilization, Supportive Therapy, Group Therapy, Psychoeducational Therapy
[2017-07-19] MEDS ORDERED: Gabapentin 100 MG CAPSULE PO SCH (15:00)
--- NOTE | 2017-07-20 08:07 | Electrocardiograph Report ---
[place] [id number] Test Date: 2017-07-17 Pat Name: Marcell Rangel Department: 103 Room: 1A22 Gender: M [employer] Supervisor: MYRTLE : 1985 Requested By: Omid Geronimo Order Number: [id number] Reading MD: Danilo Hwang Measurements Intervals [place] Rate: 86 P: 67 [place]: 136 QRS: 72 QRSD: 93 T: 62 QT: 354 QTc: 398 Interpretive Statements SINUS RHYTHM Electronically Signed On 07-20-2017 8:06:06 EDT by Danilo Hwang
== END 2017-07-19 14:30 | disposition home or self-care (01) | DRG 817 ==
LOC: EMEROO 22:38 → 1ANU 07-18 07:23 → SUATTDRO 07-18 07:23 → 1ANU 07-18 07:42
PROVIDERS: ADMIT Psychiatry & Neurology Forensic Psychiatry; ATTEND Psychiatry & Neurology Forensic Psychiatry